=== PATIENT | female | born 1950 | race Caucasian/White ===

== ENCOUNTER 2021-06-05 18:59 | Emergency (ER) | payer OTHER, SELFPAY ==
--- NOTE | ~2021-06-05 | XR_ITS ---
EXAMINATION: XR lumbar spine 2-3V EXAM DATE: 06/05/2021 20:02 INDICATION: Fall, back pain. TECHNIQUE: Lumber spine frontal, lateral, lateral L5-S1 projections for interpretation. There is no prior study for comparison. FINDINGS: There is moderate lumbar levoscoliosis. Mild compression fracture inferior endplate of L1, without acute fracture line identified but can't exclude acute component. There is moderate L1-2, mi ld to moderate L2-3 disc disease. Mild at the other lumbar levels. There is moderate to severe lumbar facet arthropathy. Sacrum, sacroiliac joints, sacral arcuate lines are intact. Paraspinal soft tissu e is unremarkable. IMPRESSION: Mild compression fracture L1, could be chronic but can't exclude acute component. Moderat e levoscoliosis. Moderate to severe arthropathy, moderate disc disease. Reviewed, dictated and finalized at location . PAINTER IMPRESSION: Mild compression fracture L1, could be chronic but can't exclude ac ugo component. Moderate levoscoliosis. Moderate to severe arthropathy, moderate disc disease.
--- NOTE | ~2021-06-05 | XR_ITS ---
EXAMINATION: XR hip LT min 2V EXAM DATE: 06/05/2021 20:03 INDICATION: Fall, left hip pain. TECHNIQUE: Left hip frontal, 'frog leg' projections for interpretation. There is no prior study for comparison. FINDINGS: Smooth left hip femoral head contour, no radiographic evidence of avascular necrosis. Ther e is mild to moderate primary osteoarthritis. There are no acute fractures or dislocations identified . There is no subcutaneous gas. The soft tissue is unremarkable. There are no radiopaque foreign bodies. IMPRESSION: 1. XR hip LT min 2V exam without acute osseous findings. Reviewed, dictated and finalized at location G. [employer]
--- NOTE | 2021-06-05 19:09 | ED.BACK ---
HPI - Back Pain/Injury General Chief Complaint: Back Pain/Injury Stated Complaint: BACK PAIN Source: patient, EMS and RN notes reviewed Mode of arrival: EMS Limitations: no limitations History of Present Illness HPI Narrative: patient has been in contact with someone with COVID. Patient has had a fall yesterday onto her left side and complains of back pain. She has a history of spina bifida and is aggravated her chronic back pain that she takes Vicodin for. She also has some left hip pain without any deformity seen. She began having symptoms of COVID today. MD elicited complaint: back pain and fall (yesterday) Pertinent past history: prior back pain Onset (ago): day(s) (1) Timing: constant Severity: severe Similar Symptoms Previously: Yes Quality: sharp, stabbing and spasming Location: lumbar spine Radiation: none Exacerbating factors: movement and supine positioning Context: fall Work related injury: No Related Data Home Medications Medication Instructions Recorded Confirmed ascorbate calcium (vitamin C) 500 mg PO DAILY 06/05/21 06/05/21 atenolol 100 mg PO DAILY 06/05/21 06/05/21 cholecalciferol (vitamin D3) 50 mcg PO DAILY 06/05/21 06/05/21 dextroamphetamine 30 mg PO TID 06/05/21 06/05/21 hydrocodone-acetaminophen [[place]] 1 tablet PO Q6H PRN 06/05/21 06/05/21 levothyroxine 125 mcg PO DAILY 06/05/21 06/05/21 Allergies Allergy/AdvReac Type Severity Reaction Status Date / Time erythromycin base Allergy Unknown Verified 06/05/21 19:56 Penicillins Allergy Unknown Verified 06/05/21 19:56 Review of Systems Review of Systems: All systems reviewed & are unremarkable except as noted in HPI and below Constitutional: Constitutional: Denies chills, Denies fever(s) and Reports weakness Respiratory: Respiratory: Denies cough and Denies dyspnea Gastrointestinal: Gastrointestinal: Reports diarrhea, Reports nausea and Denies vomiting Genitourinary: Genitourinary: Denies nocturia and Denies dysuria Neurologic: Reports headache(s) [facility] Past Medical History Medical History (Updated 06/06/21 @ 00:01 by Pablo Lind MD) Asthma Chronic back pain Hypothyroidism Morbid obesity Narcolepsy Spina bifida Tension headache Surgical History Surgical History (Updated 06/05/21 @ 19:54 by Pablo Lind MD) No pertinent past surgical history Social History Social History (Updated 06/05/21 @ 19:54 by Pablo Lind MD) Smoking status: Former smoker Alcohol intake: never Substance use: never Exam Const: General: healthy appearing, no acute distress and alert Nutritional Appearance: well nourished and obese morbidly obese Orientation/consciousness: patient oriented x3 HENMT: Head: normal to inspection Mouth: Yes dry mucous membranes Eyes: Conjunctivae: conjunctivae normal Pupils: Equal, round and reactive pupils present EOM: EOMs intact bilaterally Neck: Neck: normal visual inspection Resp: Effort & Inspection: normal respiratory effort Auscultation: clear to auscultation bilaterally Cardio: Rate: regular rate Rhythm: regular rhythm GI: GI Palp: Yes Soft to palpation and No Tenderness to palpation present (GI) Auscultation: normal bowel sounds Back/Spine/Pelvis: Cervical Spine: cervical ROM normal Thoracic/Lumbar Spine: pain with thoraco-lumbar ROM, thoraco-lumbar ROM limited with forward flexion and thoraco-lumbar spasm on the left in the lower lumbar Skin: General skin exam: normal color Rashes: rashes noted (Also in panus fold of abdomen) patches central groin color beefy and with an erythematous base Neuro: General: patient oriented x3, moves all extremities, no focal motor deficits and CN's II-XI intact bilaterally Speech: normal speech Extrem: General: normal exam except as noted and no clubbing, cyanosis or edema Left lower extremity: hip/thigh Details: normal to inspection and tenderness Location: of the hip Location: laterally and posteriorly Psych: Appearance: grossly normal an
[2021-06-05 19:21] VITALS: BP 104/86; PULSE 83; RESP 22; TEMP 36.6; O2SAT 89
[2021-06-05] MEDS: KETOROLAC (*BKC) 60 MG/2 ML VIAL IM (19:30)
[2021-06-05 20:35] LABS: Basophils Absolute Auto 0.02 K/mm3 (0.00-0.10); Basophils Percent Auto 0.2 % (0.0-1.0); Hematocrit 34.9 % (35.0-42.0); Hemoglobin 11.9 g/dL (11.7-13.8); Immature Granulocyte Absolute 0.15 K/mm3 (0.00-0.00); Immature Granulocyte Percent A 1.5 % (0.0-0.0); Lymphocytes Absolute Auto 1.03 K/mm3 (1.10-4.50); Lymphocytes Percent Auto 10.4 % (18.0-42.0); Mean Corpuscular HGB Conc 34.1 g/dL (32.0-36.0); Mean Corpuscular Hemoglobin 28.4 pg (27.0-31.0); Mean Corpuscular Volume 83.3 fL (78.0-102.0); Mean Platelet Volume 11.5 fl (9.2-11.8); Monocytes Absolute Auto 0.77 K/mm3 (0.10-0.90); Monocytes Percent Auto 7.8 % (2.0-11.0); Neutrophils Absolute Auto 7.9 K/mm3 (1.7-7.2); Neutrophils Percent Auto 80.1 % (50.0-70.0); Nucleated Red Blood Cells Absolute Auto 0.02 K/mm3 (0.00-0.00); Nucleated Red Blood Cells Perc 0.2 % (0-0.0); Platelet Count Result 236 K/mm3 (150-420); Red Blood Count 4.19 M/mm3 (4.20-5.40); Red Cell Distribution Width 17.1 % (11.6-14.4); White Blood Count 9.9 K/mm3 (4.8-10.8)
[2021-06-05 20:42] VITALS: PULSE 86; RESP 22; O2SAT 86
[2021-06-05 20:54] LABS: Lactic Acid Reflex 2.4 mmol/L (0.4-2.0)
[2021-06-05 21:00] VITALS: BP 104/86; PULSE 80; RESP 18; O2SAT 90
[2021-06-05 21:11] LABS: SARS-CoV-2 RNA PCR Positive (Negative)
[2021-06-05 21:25] LABS: Alanine Aminotransferase 37 U/L (14-59); Albumin Level 2.7 g/dL (3.4-5.0); Alkaline Phosphatase 111 U/L (46-116); Anion Gap 10 mmol/L (8-16); Aspartate Amino Transferase 85 U/L (15-37); Bilirubin,Total 1.2 mg/dL (0.00-1.00); Blood Urea Nitrogen 67 mg/dL (7-18); Calcium 8.4 mg/dL (8.5-10.1); Carbon Dioxide 28 mmol/L (21-32); Chloride 99 mmol/L (98-108); Estimated CRCL calculation 61 ml/min; Estimated Glomerular Filt Rate 47; Glucose 147 mg/dL (70-99); Magnesium 2.7 mg/dL (1.8-2.4); Osmolality Calculated 306 mOsm/kg (285-295); Potassium 5.1 mmol/L (3.5-5.1); Sodium 137 mmol/L (136-145); Total Protein 7.2 g/dL (6.4-8.2)
[2021-06-05 21:32] LABS: CRP 16.2 mg/dL (0.0-0.9); Ferritin > 1000 ng/mL (8-252)
[2021-06-05] MEDS: SODIUM CHLORIDE 0.9% IV 1,000 ML 999 ML IV CONT ×2 (21:45→23:30)
--- NOTE | 2021-06-05 22:05 | PC.NURSE ---
Pt crying and noncompliant c care being given. Pt refuses O2, refused pain medication when offered, and wants to sit up at bedside, when trying to assist pt. she refuses to help and continues to cry. Pt is very poor historian and unable to please. Pt wanting food to eat, food tray given but not to pts. satisfaction.
[2021-06-05 23:32] LABS: Reflex Lactic Acid Yes or No Add Lactic
[2021-06-05 23:53] VITALS: BP 124/64; PULSE 90; RESP 20; O2SAT 93
[2021-06-06] VITALS: RESP 20; O2SAT 99
[2021-06-06 00:15] LABS: Lactic Acid 1.6 mmol/L (0.4-2.0)
[2021-06-06 01:33] LABS: Anion Gap 9 mmol/L (8-16); Blood Urea Nitrogen 65 mg/dL (7-18); Calcium 7.9 mg/dL (8.5-10.1); Carbon Dioxide 27 mmol/L (21-32); Chloride 101 mmol/L (98-108); Estimated CRCL calculation 64 ml/min; Estimated Glomerular Filt Rate 50; Glucose 144 mg/dL (70-99); Osmolality Calculated 305 mOsm/kg (285-295); Potassium 5.3 mmol/L (3.5-5.1); Sodium 137 mmol/L (136-145)
[2021-06-06 02:45] VITALS: BP 135/56; PULSE 78; RESP 18; TEMP 36.2; O2SAT 91
== END 2021-06-06 03:00 | disposition home or self-care (01) ==
PROVIDERS: Emergency Provider Emergency Medicine
DX: U07.1 COVID-19 (principal); N28.9 Disorder of kidney and ureter, unspecified; B37.89 Other sites of candidiasis; S32.010A Wedge compression fracture of first lumbar vertebra, initial encounter for closed fracture; W19.XXXA Unspecified fall, initial encounter; N18.9 Chronic kidney disease, unspecified
CPT/HCPCS: 36415; 72100; 73502; 80048; 80053; 82728; 83605; 83735; 85025; 86140; 96361; 96372; 96374; 99283; 99284; C9803; J1100; J1885; J7030; U0003; U0005